=== PATIENT | female | born 1975 | race Two or more races ===

== ENCOUNTER 2020-01-20 09:04 | Inpatient (IN) | payer BC, OTHER ==
[~2020-01-20] VITALS: Ht 165.1 cm; Wt 67.7 kg
--- NOTE | 2020-01-20 09:32 | NUR ---
PT HERE WITH C/O CHEST PAIN WHILE COUGHING. PT STATES SHE HAS HAD COUGH X 1 YEAR. PT ALSO STATES SHE HAS BEEN TOLD SHE HAS ASTHMA BUT "I DON'T KNOW." PT AAO X 4, NAD, ROOM AIR, DRESSED IN GOWN AND ATTACHED TO MONITOR. MD AT BEDSIDE FOR EXAM. SIDERAIL X [address], PT STATES "GREEN [employer] KEEPS COMING OUT WHEN I COUGH," CALL LIGHT WITHIN REACH AND FAMILY AT BEDSIDE.
[2020-01-20] MEDS ORDERED: ALBUTEROL/IPRATROPIUM 2.5MG/0.5MG, 3 ML ONE ×2 (09:35→11:41)
[2020-01-20] MEDS: ALBUTEROL/IPRATROPIUM 2.5MG/0.5MG, 3 ML NPPB SCH (09:40)
--- NOTE | 2020-01-20 09:42 | NUR ---
PT TO AND FROM RADIOLOGY FOR XRAY. RT AT BEDSIDE FOR TX.
[2020-01-20 09:53] LABS: BASOPHILS # (AUTO) 0.06 x10^3/uL (0-0.1); BASOPHILS % (AUTO) 1 % (0-1); EOSINOPHILS % (AUTO) 16 % (1-7); LYMPHOCYTES # (AUTO) 2.36 x10^3/uL (1-3.4); LYMPHOCYTES % (AUTO) 34 % (22-44); MD NO; MEAN CORPUSCULAR HEMOGLOBIN 27.4 pg (27.0-34.8); MEAN CORPUSCULAR HGB CONC 32.1 g/dL (32.4-35.8); MEAN CORPUSCULAR VOLUME 85.4 fL (80-100); MEAN PLATELET VOLUME 7.3 fL (7.4-10.4); MONOCYTES # (AUTO) 0.46 x10^3/uL (0.2-0.8); MONOCYTES % (AUTO) 7 % (2-9); NEUTROPHILS # (AUTO) 2.89 x10^3/uL (1.8-6.8); NEUTROPHILS % (AUTO) 42 % (42-75); PLATELET COUNT 539 x10^3/uL (130-400); RED BLOOD COUNT 4.56 x10^6/uL (3.82-5.3); RED CELL DISTRIBUTION WIDTH 15.1 % (9.6-15.2)
--- NOTE | 2020-01-20 09:58 | NUR ---
PT MEDICATED PER ORDERS.
[2020-01-20 10:02] LABS: ALBUMIN 3.5 g/dL (3.4-5.0); ANION GAP 4 mmol/L (5-15); CALCIUM 8.5 mg/dL (8.5-10.1); CHLORIDE 108 mmol/L (98-107); CREATININE 0.66 mg/dL (0.55-1.02)
[2020-01-20 10:06] LABS: TROPONIN I < 0.015 ng/mL (0.000-0.045)
--- NOTE | 2020-01-20 10:07 | NUR ---
ALL RESULTS BACK AT THIS TIME, CHART UP FOR RECHECK.
[2020-01-20] MEDS ORDERED: ALBUTEROL SULFATE 2.5 MG/3 ML NPPB ONE (11:00)
--- NOTE | 2020-01-20 11:56 | NUR ---
RT AT BEDSIDE FOR SECOND TREATMENT.
--- NOTE | 2020-01-20 12:16 | NUR ---
MD AT BEDSIDE FOR REASSESSMENT, PIV ESTBALISHED PER MD REQUEST, PLAN FOR ADMISSION.
[2020-01-20] MEDS ORDERED: MAGNESIUM SULFATE PMX 2GM/50ML 50 ML IV ONE (12:30)
[2020-01-20] MEDS ORDERED: MAGNESIUM SULFATE PMX 2GM/50ML 50 ML ONE (12:38)
--- NOTE | 2020-01-20 12:46 | NUR ---
PT MEDICATED PER ORDERS.
--- NOTE | 2020-01-20 13:00 | NUR ---
REPORT TO HSAYY FISHER. CARE TRANSFERRED.
--- NOTE | 2020-01-20 13:02 | NUR ---
BEDSIDE REPORT FROM MARYJANE RN, PT RESTING IN [facility] ON MONITOR. [facility] AT BEDSIDE
[2020-01-20] MEDS ORDERED: IBUPROFEN 600 MG TABLET PO PRN (13:30)
[2020-01-20] MEDS ORDERED: KETOROLAC 30 MG/1 ML IV PRN (13:30)
[2020-01-20] MEDS ORDERED: ACETAMINOPHEN 325 MG TABLET PO PRN (13:30)
[2020-01-20] MEDS ORDERED: hydrALAzine 20 MG/ML, 1ML IVPush PRN (13:30)
[2020-01-20] MEDS ORDERED: BACLOFEN 10 MG TABLET PO PRN (13:30)
[2020-01-20] MEDS ORDERED: ONDANSETRON 2MG/ML, 2ML IVPush PRN (13:30)
[2020-01-20] MEDS ORDERED: ONDANSETRON ODT 4 MG PO PRN (13:30)
--- NOTE | 2020-01-20 13:45 | NUR ---
BREAK RN: PT VSS, NAD NOTED. PT DENIES PAIN. CALL LIGHT W/I REACH
--- NOTE | 2020-01-20 13:49 | NUR ---
TRIED TO CALL REPORT X1, NO ANSWER
--- NOTE | 2020-01-20 14:36 | NUR ---
REPORT TO MEGHAN LUCAS
[2020-01-20 15:15] VITALS: BP 130/81
[2020-01-20 15:17] VITALS: BP 130/81
[2020-01-20 15:53] LABS: RAPID INFLUENZA A Negative (Negative); RAPID INFLUENZA B Negative (Negative)
[2020-01-20] MEDS: NS + 20MEQ KCL 1,000 ML IV SCH (16:14)
[2020-01-20] MEDS: ALBUTEROL SULFATE 2.5 MG/3 ML NPPB SCH (19:59)
[2020-01-20 20:00] VITALS: BP 144/87
[2020-01-20] MEDS: methylPREDNISolone SOD SUCC 125 MG/2 ML IVPush SCH (20:07)
[2020-01-20 20:41] LABS: TROPONIN I < 0.015 ng/mL (0.000-0.045)
[2020-01-21 01:40] VITALS: BP 124/88
[2020-01-21] MEDS: methylPREDNISolone SOD SUCC 125 MG/2 ML IVPush SCH ×3 (03:33→19:46)
[2020-01-21] MEDS: NS + 20MEQ KCL 1,000 ML IV SCH (03:47)
[2020-01-21 06:42] LABS: BASOPHILS % (AUTO) 0 % (0-1); EOSINOPHILS % (AUTO) 0 % (1-7); LYMPHOCYTES # (AUTO) 0.89 x10^3/uL (1-3.4); LYMPHOCYTES % (AUTO) 9 % (22-44); MD NO; MEAN CORPUSCULAR HEMOGLOBIN 27.2 pg (27.0-34.8); MEAN CORPUSCULAR VOLUME 84.8 fL (80-100); MEAN PLATELET VOLUME 7.8 fL (7.4-10.4); MONOCYTES # (AUTO) 0.09 x10^3/uL (0.2-0.8); MONOCYTES % (AUTO) 1 % (2-9); NEUTROPHILS # (AUTO) 8.73 x10^3/uL (1.8-6.8); NEUTROPHILS % (AUTO) 90 % (42-75); PLATELET COUNT 460 x10^3/uL (130-400); RED BLOOD COUNT 4.29 x10^6/uL (3.82-5.3); RED CELL DISTRIBUTION WIDTH 15.1 % (9.6-15.2)
[2020-01-21 06:49] LABS: ANION GAP 5 mmol/L (5-15); CALCIUM 8.5 mg/dL (8.5-10.1); CHLORIDE 108 mmol/L (98-107); CREATININE 0.51 mg/dL (0.55-1.02)
[2020-01-21 06:53] LABS: TROPONIN I < 0.015 ng/mL (0.000-0.045)
[2020-01-21] MEDS: ALBUTEROL SULFATE 2.5 MG/3 ML NPPB SCH ×4 (07:00→19:55)
[2020-01-21 07:26] VITALS: BP 118/74
[2020-01-21] MEDS: DOXYCYCLINE 100MG TABLET PO SCH ×2 (12:46→19:46)
[2020-01-21 12:49] VITALS: BP 122/78
[2020-01-21] MEDS ORDERED: OMNIPAQUE 350 MG/ML, 100ML BOTTLE ONE (17:15)
[2020-01-21 18:46] VITALS: BP 121/72
[2020-01-22 00:52] VITALS: BP 125/74
[2020-01-22] MEDS: methylPREDNISolone SOD SUCC 125 MG/2 ML IVPush SCH ×2 (04:17→20:40)
[2020-01-22] MEDS: ALBUTEROL SULFATE 2.5 MG/3 ML NPPB SCH ×4 (07:10→20:12)
[2020-01-22 07:25] VITALS: BP 125/74
[2020-01-22] MEDS: DOXYCYCLINE 100MG TABLET PO SCH ×2 (09:51→20:39)
[2020-01-22 14:20] VITALS: BP 115/72
[2020-01-22 18:57] VITALS: BP 126/80
[2020-01-23 01:06] VITALS: BP 125/79
[2020-01-23] MEDS: ALBUTEROL SULFATE 2.5 MG/3 ML NPPB SCH ×2 (07:31→11:50)
[2020-01-23 07:47] VITALS: BP 138/89
[2020-01-23] MEDS: DOXYCYCLINE 100MG TABLET PO SCH (10:27)
[2020-01-23] MEDS: methylPREDNISolone SOD SUCC 125 MG/2 ML IVPush SCH (10:27)
[2020-01-23 12:06] VITALS: BP 131/84
[2020-01-23] MEDS ORDERED: DOXY100T PO (12:59)
[2020-01-23] MEDS ORDERED: METH4TAB6 PO (12:59)
[2020-01-23] MEDS ORDERED: ALBU18HF INH (12:59)
[2020-01-23] MEDS ORDERED: BUDE10.2 INH (12:59)
== END 2020-01-23 16:10 | disposition home or self-care (01) | DRG 202 ==
LOC: SUATTDRO 12:50 → ED 13:04 → EDIP 14:20 → 4WST 14:57 → DCLOUNGE 01-23 15:59
PROVIDERS: ADMIT Hospitalist; ATTEND Hospitalist
DX: J45.42 Moderate persistent asthma with status asthmaticus (principal); J18.9 Pneumonia, unspecified organism; J96.01 Acute respiratory failure with hypoxia; Z79.51 Long term (current) use of inhaled steroids; Z82.49 Family history of ischemic heart disease and other diseases of the circulatory system; Z87.01 Personal history of pneumonia (recurrent)
CPT/HCPCS: 36415; 87400; 99291; J7613; 71046; 71275; 80048; 82040; 83880; 84484; 85025; 93005; 93306; 93356; 94640; G0378; J3480; Q9967; J2930; J3475; J7512